=== PATIENT | female | born 1980 | race Caucasian/White ===

== ENCOUNTER 2023-07-27 14:31 | Emergency (ER) | payer OTHER, SELFPAY ==
[2023-07-27 14:34] VITALS: BP 152/100; PULSE 84; TEMP 36.9; O2SAT 98
--- NOTE | 2023-07-27 14:45 | XR_ITS ---
The [address] [address] Patient Name: HUMERA DODD MRN: [id number] date: 1980 Sex: F Assigned Patient Location: ER Current Patient Location: ED.MAIN Accession/Order Number: [id number] Exam Date: 07/27/2023 14:57 Report Date: 07/27/2023 15:22 At the request of: ALVIN CRAWFORD Procedure: XR wrist LT min 3V EXAM: XR wrist LT min 3V HISTORY: pain [wrist laceration, glass. Rule out bony abnormality/fracture, foreign body. COMPARISON: None. TECHNIQUE: PA, oblique/scaphoid, lateral view left wrist. FINDINGS: No fracture or bony abnormality. Normal joints and soft tissues, no evidence of foreign body. Lucency along the ulnar aspect of the wrist near the base of fifth metacarpal suggests soft tissue injury. XR/XR wrist LT min 3V IMPRESSION: Negative for fracture or foreign body. Electronically authenticated by: PAULINA HAIDER Date: 07/27/2023 15:22
--- NOTE | 2023-07-27 14:46 | PC.NURSE ---
non bleeding lac to top / outside of left wrist from glass. band aid applied after assessment
--- NOTE | 2023-07-27 15:06 | ED_ITS ---
HPI - Skin/Abscess/Foreign Bdy General Chief complaint: Skin/Abscess/Foreign Body Stated complaint: LACERATION LEFT WRIST Time Seen by Provider: 07/27/23 15:01 Source: patient Mode of arrival: walk-in History of Present Illness HPI narrative: 42 yr female (R) hand dominant presents for laceration left dorsal wrist.. pt cleaning fishbowl went it fell and broke. + lac with glass 1.5cm , bleeding controlled pt washed at home. minimal pain, no motor deficient, denies n/t with full rom.... pt unsure last tetanus. presents for possible sutures as chief concern. MD complaint: Reports laceration Onset (ago): minute(s) Tetanus up to date: no Location: Reports L hand (wrist) Severity: mild Quality: Reports burning and sharp Pain Consistency: Reports constant Relieving factors: Reports none Exacerbating factors: Reports none Context: Reports none Treatments prior to arrival: Reports other (irrigated) Related Data Allergies Allergy/AdvReac Type Severity Reaction Status Date / Time lodine Allergy Severe Uncoded 07/27/23 14:42 tylenol 3 Allergy Severe Uncoded 07/27/23 14:42 Review of Systems ROS Constitutional Denies: fever or chills Eyes Denies: change in vision Cardiovascular Denies: chest pain Respiratory Denies: shortness of breath Gastrointestinal Denies: abdominal pain or nausea Musculoskeletal Denies: back pain or neck pain Psychiatric Denies: anxiety, suicidal ideation or homicidal ideation Exam Narrative Exam Narrative: Nurse's notes and vital signs reviewed. Patient is not hypoxic. General: The patient appears well and in no apparent distress. Patient is resting comfortably on cart. Skin: Warm, dry, no pallor noted. 1.5cm lac left dorsal wrist ulnar aspect. no active bleeding. Head: Normocephalic, atraumatic Eye: Normal conjunctiva Respiratory: Patient is in no distress Musculoskeletal: The Left wrist shows no obvious deformity. laceration. no visible tendon injury There was no swelling noted. The patient had full ROM despite pain The patient had tenderness noted on the laceration . The patient had no tenderness in the anatomical snuff box. The patient had no pain with axial loading of the thumb. Pulses are intact at brachial and radial 2+. There was no deficit at the elbow or shoulder. The patient has normal capillary refill to all distal digits. The patient has no evidence of cyanosis or mottling. The patient is able to flex and extend all digits without difficulty. Neurological: A&O x4, normal sensory, normal motor Psychiatric: Cooperative Constitutional Vital Signs, click to edit/add: Last Vital Signs Temp 98.4 F 07/27/23 14:34 Pulse 84 07/27/23 14:34 Resp 16 07/27/23 14:34 BP 152/100 H 07/27/23 14:34 Pulse Ox 98 07/27/23 14:34 O2 Del Method Room Air 07/27/23 14:34 Course Vital Signs Vital signs: Vital Signs Temperature 98.4 F 07/27/23 14:34 Pulse Rate 84 07/27/23 14:34 Respiratory Rate 16 07/27/23 14:34 Blood Pressure 152/100 H 07/27/23 14:34 Pulse Oximetry 98 07/27/23 14:34 Oxygen Delivery Method Room Air 07/27/23 14:34 Temperature 98.4 F 07/27/23 14:34 Pulse Rate 84 07/27/23 14:34 Respiratory Rate 16 07/27/23 14:34 Blood Pressure 152/100 H 07/27/23 14:34 Pulse Oximetry 98 07/27/23 14:34 Oxygen Delivery Method Room Air 07/27/23 14:34 MDM - Skin/Abscess/Foreign Bdy MDM Narrative Medical decision making narrative: Tetanus was updated, x-ray of the left wrist preliminary review no evidence of fracture, no radiopaque foreign body. Wound was examined without evidence of foreign body or glass, irrigated. Discussed need for suture removal in 7 to 10 days. Patient can take Tylenol or Motrin for pain. We discussed ice and elevation. We discussed follow-up to family doctor or return to the ER for suture removal. Patient had no further concerns or questions. I do not feel antibiotics are warranted. The patient is to followup with primary care physician in next 7-10 days or to return to the emergency department should any of the signs or symptoms worsen or new symptoms develop. Patient had questions answered. The patient agrees with the following Diagnosis and Treatment plan and the patient will be discharged home. Imaging Data Left wrist 3 view: Attestation: I personally reviewed and interpreted this imaging study as follows: My impression: Three-view left wrist x-ray no acute fracture, no radiopaque foreign body, normal alignment. Discharge Plan Discharge Stand Alone Forms: Portal Instructions Chief Complaint: Skin/Abscess/Foreign Body Clinical Impression: Laceration of left wrist Patient Disposition: Home, Self-Care Time of Disposition Decision: 15:30 Condition: Good Print Language: Marshallese Instructions: Laceration (ED) Additional Instructions: Follow-up with PCP or return to the ER in 7 to 10 days for suture removal Referrals: JAVED CEE MD [Primary Care Provider] - 1 week Procedures ED Laceration Laceration Laceration 1: Additional comments: Laceration repair: Done under sterile conditions. The use of cholrahexadine was used to prep and clean the area. Local injection with lidocaine 1% was used, approximately 2 cc. The wound was irrigated copiously with normal saline. The wound was explored there was no evidence of foreign material. The laceration was approximated with 5-0 nylon. 3 simple interrupted sutures were placed. Patient tolerated the procedure well. The patient was neurovascularly intact post. the patient had bacitracin applied to the laceration and a dry sterile dressing was place. The patient will need to follow-up in the next 7-10 days for removal.
[2023-07-27] MEDS: BACITRACIN 0.9 GM PACKET 1 PACKET TOPICAL (15:11)
[2023-07-27] MEDS: LIDOCAINE HCL 1% PF 20 MG/2 ML VIAL INJ (15:12)
[2023-07-27] MEDS: ADACEL DIPH,PERTUSS(ACELL),TET VAC/PF 0.5 ML ADULT SYRINGE IM (15:13)
== END 2023-07-27 15:39 | disposition home or self-care (01) ==
PROVIDERS: Emergency Provider Emergency Medicine; PCP Internal Medicine
DX: S61.512A Laceration without foreign body of left wrist, initial encounter (principal); Z23 Encounter for immunization; W25.XXXA Contact with sharp glass, initial encounter
CPT/HCPCS: 12001; 73110; 90471; 90715; 99283